=== PATIENT | male | born 1960 | race Caucasian/White ===

== ENCOUNTER 2016-10-21 18:06 | Inpatient (IN) | payer MEDICAID ==
[~2016-10-21] VITALS: Ht 185.4 cm; Wt 82.0 kg
[~2016-10-21 18:06] MED LIST: AMLO10TA2 PO; ASPI-621 PO; CALC500T PO; CEFD300C37 PO; CYCL-259 PO; DICL50TA2 PO; DICL50TA4 PO; GABA300C10 PO; HYDR-3307 PO; LEVO500T33 PO; METR500T PO; OMEP-110 PO; VALS1TAB19 PO; VALS1TAB30 PO
[2016-10-21] MEDS ORDERED: DICL50TA2 PO (18:30)
[2016-10-21] MEDS ORDERED: ALBUTEROL/IPRATROPIUM 2.5MG/0.5MG, 3 ML ONE (19:27)
[2016-10-21] MEDS ORDERED: methylPREDNISolone SOD SUCC 125 MG/2 ML IVP ONE (19:30)
[2016-10-21] MEDS ORDERED: methylPREDNISolone SOD SUCC 125 MG/2 ML ONE (19:30)
[2016-10-21] MEDS ORDERED: ALBUTEROL/IPRATROPIUM 2.5MG/0.5MG, 3 ML NPPB ONE (19:30)
[2016-10-21 19:37] LABS: BLOOD UREA NITROGEN 15 mg/dL (7-18)
[2016-10-21 19:41] LABS: IS PT STATUS REG ER OR PRE ER? YES
[2016-10-21] MEDS ORDERED: OXYcodone/APAP 10/325MG TABLET ONE (21:40)
[2016-10-21] MEDS ORDERED: OXYcodone/APAP 10/325MG TABLET PO ONE (22:00)
[2016-10-22] MEDS: CEFTRIAXONE 1,000 MG in SODIUM CHLORIDE 0.9% 50 ML IV SCH ×3 (00:26→23:09)
[2016-10-22] MEDS: GABAPENTIN 300 MG CAPSULE PO SCH ×4 (00:26→21:23)
[2016-10-22] MEDS: methylPREDNISolone SOD SUCC 125 MG/2 ML IVPush SCH ×2 (00:26→11:00)
[2016-10-22] MEDS: SODIUM CHLORIDE 0.9% 1,000 ML IV SCH ×3 (00:26→21:24)
[2016-10-22] MEDS: FAMOTIDINE 20 MG TABLET PO SCH ×3 (00:27→21:22)
[2016-10-22] MEDS: GUAIFENESIN 200 MG TABLET PO SCH ×5 (00:27→21:23)
[2016-10-22] MEDS: HYDROcodone/APAP 5/325 TABLET PO PRN ×2 (00:48→10:23)
[2016-10-22 00:49] VITALS: BP 161/92
[2016-10-22] MEDS: AZITHROMYCIN 500 MG in SODIUM CHLORIDE 0.9% 250 ML IV SCH (01:04)
[2016-10-22 02:29] VITALS: BP 127/86
[2016-10-22 05:31] LABS: BLOOD UREA NITROGEN 19 mg/dL (7-18)
[2016-10-22 07:01] VITALS: BP 143/87
[2016-10-22] MEDS: ONDANSETRON 2MG/ML, 2ML IVPush PRN ×3 (08:34→21:23)
[2016-10-22] MEDS: DICLOFENAC 50 MG TABLET.DR PO SCH ×2 (08:37→21:00)
[2016-10-22] MEDS: VALSARTAN 320 MG TABLET PO SCH (08:37)
[2016-10-22] MEDS: ENOXAPARIN 40 MG/0.4 ML SQ SCH (08:38)
[2016-10-22] MEDS: AMLODIPINE 5 MG TABLET PO SCH (08:38)
[2016-10-22] MEDS: HYDROCHLOROTHIAZIDE 25 MG TABLET PO SCH (08:38)
[2016-10-22] MEDS ORDERED: ACETAMINOPHEN 325 MG TABLET PO PRN (09:00)
[2016-10-22] MEDS: KETOROLAC 30 MG/1 ML IVPush SCH ×2 (12:31→18:59)
[2016-10-22 13:41] VITALS: BP 139/82
[2016-10-22 19:05] VITALS: BP 143/78
[2016-10-23] MEDS: KETOROLAC 30 MG/1 ML IVPush SCH ×3 (00:18→11:33)
[2016-10-23] MEDS: AZITHROMYCIN 500 MG in SODIUM CHLORIDE 0.9% 250 ML IV SCH (00:19)
[2016-10-23] MEDS ORDERED: ALBUTEROL/IPRATROPIUM 2.5MG/0.5MG, 3 ML NPPB PRN (03:30)
[2016-10-23 04:03] VITALS: BP 134/76
[2016-10-23 05:55] LABS: BLOOD UREA NITROGEN 15 mg/dL (7-18)
[2016-10-23] MEDS: GUAIFENESIN 200 MG TABLET PO SCH ×2 (06:00→08:40)
[2016-10-23 07:08] VITALS: BP 123/69
[2016-10-23] MEDS: VALSARTAN 320 MG TABLET PO SCH ×2 (07:27→08:42)
[2016-10-23] MEDS: DICLOFENAC 50 MG TABLET.DR PO SCH (07:29)
[2016-10-23] MEDS: FAMOTIDINE 20 MG TABLET PO SCH (08:40)
[2016-10-23] MEDS: GABAPENTIN 300 MG CAPSULE PO SCH (08:40)
[2016-10-23] MEDS: SODIUM CHLORIDE 0.9% 1,000 ML IV SCH (08:42)
[2016-10-23] MEDS: HYDROCHLOROTHIAZIDE 25 MG TABLET PO SCH (08:42)
[2016-10-23] MEDS: ENOXAPARIN 40 MG/0.4 ML SQ SCH (08:42)
[2016-10-23] MEDS: AMLODIPINE 5 MG TABLET PO SCH (08:42)
[2016-10-23] MEDS ORDERED: PRED20TA PO (11:00)
[2016-10-23] MEDS: CEFTRIAXONE 1,000 MG in SODIUM CHLORIDE 0.9% 50 ML IV SCH (11:00)
[2016-10-23] MEDS ORDERED: AZIT250T89 PO (11:00)
[2016-10-23] MEDS ORDERED: CEFD300C37 PO (11:00)
[2016-10-23 11:39] VITALS: BP 153/88
== END 2016-10-23 12:57 | disposition home or self-care (01) | DRG 189 ==
LOC: ED 19:05 → EDIP 21:40 → 4NOR 23:36 → DCLOUNGE 10-23 12:45
PROVIDERS: ADMIT Internal Medicine; ATTEND Internal Medicine
DX: J96.01 Acute respiratory failure with hypoxia (principal); J15.9 Unspecified bacterial pneumonia; E87.1 Hypo-osmolality and hyponatremia; J44.0 Chronic obstructive pulmonary disease with (acute) lower respiratory infection; J44.1 Chronic obstructive pulmonary disease with (acute) exacerbation; I10 Essential (primary) hypertension; G89.29 Other chronic pain; M54.9 Dorsalgia, unspecified; Z87.891 Personal history of nicotine dependence; Z82.49 Family history of ischemic heart disease and other diseases of the circulatory system; T38.0X5A Adverse effect of glucocorticoids and synthetic analogues, initial encounter
CPT/HCPCS: 36415; 71010; 71020; 80048; 82040; 84439; 84443; 84484; 85025; 87040; 87070; 87205; 93005; 94640; 96374; 96376; J0456; J0696; J1650; J1885; J2405; J7620; J2930; J7030; J7050; J7512

== ENCOUNTER → 2018-03-15 | Outpatient (CLI) | payer MEDICAID ==
[~2018-03-15] MED LIST changes: -AMLO10TA2 PO; +AMLO10TA6 PO; +AZIT250T89 PO; -LEVO500T33 PO; +LEVO500T47 PO; +PRED20TA PO
== END | disposition home or self-care (01) ==
LOC: CFH 07:58
PROVIDERS: ATTEND Nurse Practitioner Family
DX: M51.36 Other intervertebral disc degeneration, lumbar region (principal); M48.061 Spinal stenosis, lumbar region without neurogenic claudication; M41.86 Other forms of scoliosis, lumbar region; M54.16 Radiculopathy, lumbar region
CPT/HCPCS: 72100; 72148

== ENCOUNTER 2019-01-11 12:04 | Inpatient (IN) | payer MEDICAID ==
[~2019-01-11] VITALS: Ht 182.9 cm; Wt 56.4 kg
[2019-01-14 14:36] VITALS: BP 136/82
== END 2019-01-14 17:25 | disposition home or self-care (01) | DRG 75 ==
LOC: ED 17:01 → EDIP 17:22 → 3NE 17:23
PROVIDERS: ADMIT Internal Medicine; ATTEND Internal Medicine
PROC: 009U3ZX Drainage of Spinal Canal, Percutaneous Approach, Diagnostic (ICD-10-PCS; principal; 2019-01-11)
DX: A87.9 Viral meningitis, unspecified (principal); E87.1 Hypo-osmolality and hyponatremia; E86.0 Dehydration; G89.29 Other chronic pain; M54.9 Dorsalgia, unspecified; H70.91 Unspecified mastoiditis, right ear; I10 Essential (primary) hypertension; M41.9 Scoliosis, unspecified; Z80.42 Family history of malignant neoplasm of prostate; Z82.49 Family history of ischemic heart disease and other diseases of the circulatory system; Z87.01 Personal history of pneumonia (recurrent); Z87.891 Personal history of nicotine dependence; Z88.8 Allergy status to other drugs, medicaments and biological substances
CPT/HCPCS: 36415; 70450; 71045; 80048; 80053; 82945; 83605; 83735; 84100; 84145; 84157; 85025; 87040; 87070; 87205; 87252; 87529; 89051; 93005; 96374; 99291; G0378; J0133; J1885; J2405; J0295; J0360; J7030; J7050

== ENCOUNTER → 2020-01-15 | Outpatient (CLI) | payer MEDICAID ==
[~2020-01-15] MED LIST changes: +ACET325T26 PO; -AMLO10TA6 PO; +AMLO10TA8 PO; +AMOX1TAB64 PO; -ASPI-621 PO; +ASPI81TA45 PO; -CALC500T PO; +CALC500T29 PO; +HYDR-3246 PO; -HYDR-3307 PO; +LOSA1TAB12 PO
== END | disposition home or self-care (01) ==
LOC: RAD 10:12
DX: M50.31 Other cervical disc degeneration, high cervical region (principal); M41.83 Other forms of scoliosis, cervicothoracic region; M48.02 Spinal stenosis, cervical region; M25.78 Osteophyte, vertebrae
CPT/HCPCS: 72050

== ENCOUNTER 2020-08-05 08:58 | Emergency (ER) | payer MEDICAID ==
[~2020-08-05] VITALS: Ht 180.3 cm; Wt 85.2 kg
[~2020-08-05 08:58] MED LIST changes: +AMLO-211 PO; -AMLO10TA8 PO; -CYCL-259 PO; +CYCL10TA2 PO; -HYDR-3246 PO; +HYDR-3248 PO
[2020-08-05] MEDS ORDERED: DIPHENHYDRAMINE 50 MG/ML, 1ML ONE (09:24)
[2020-08-05] MEDS ORDERED: PROCHLORPERAZINE 5 MG/ML, 2ML ONE (09:24)
[2020-08-05] MEDS ORDERED: KETOROLAC 30 MG/1 ML ONE (09:25)
--- NOTE | 2020-08-05 09:29 | NUR ---
PT TO CT
[2020-08-05] MEDS ORDERED: KETOROLAC 30 MG/1 ML IVPush ONE (09:30)
[2020-08-05] MEDS ORDERED: DIPHENHYDRAMINE 50 MG/ML, 1ML IVPush ONE (09:30)
[2020-08-05] MEDS ORDERED: PROCHLORPERAZINE 5 MG/ML, 2ML IVPush ONE (09:30)
[2020-08-05] MEDS ORDERED: SODIUM CHLORIDE 0.9% 1,000ML IVBOLUS ONE (09:30)
[2020-08-05] MEDS ORDERED: SODIUM CHLORIDE FLUSH 10ML SYR IVF ONE (09:30)
[2020-08-05 09:44] LABS: ALANINE AMINOTRANSFERASE 30 U/L (12-78); ALBUMIN 4.8 g/dL (3.4-5.0); ANION GAP 5 mmol/L (5-15); CHLORIDE 101 mmol/L (98-107); CREATININE 1.15 mg/dL (0.7-1.3)
[2020-08-05 09:45] LABS: BASOPHILS % (AUTO) 0 % (0-1); EOSINOPHILS % (AUTO) 2 % (1-7); LYMPHOCYTES % (AUTO) 23 % (22-44); MEAN CORPUSCULAR HEMOGLOBIN 34.3 pg (27.5-34.5); MEAN CORPUSCULAR HGB CONC 35.1 g/dL (33.2-36.2); MEAN PLATELET VOLUME 8.3 fL (7.4-10.4); MONOCYTES % (AUTO) 9 % (2-9); NEUTROPHILS % (AUTO) 65 % (42-75); PLATELET COUNT 269 x10^3/uL (130-400); RED CELL DISTRIBUTION WIDTH 12.1 % (9.4-14.8)
--- NOTE | 2020-08-05 09:45 | NUR ---
pt back from ct
[2020-08-05 09:46] LABS: ALKALINE PHOSPHATASE 101 U/L (45-117); BILIRUBIN,TOTAL 0.6 mg/dL (0.2-1.0); MD NO; TOTAL PROTEIN 8.7 g/dL (6.4-8.2)
[2020-08-05 09:56] VITALS: BP 148/99
== END 2020-08-05 11:10 | disposition home or self-care (01) ==
LOC: ED 10:01
DX: J32.2 Chronic ethmoidal sinusitis (principal); J32.0 Chronic maxillary sinusitis; I10 Essential (primary) hypertension; Z90.89 Acquired absence of other organs; Z88.8 Allergy status to other drugs, medicaments and biological substances
CPT/HCPCS: 36415; 70450; 80053; 85025; 96361; 96374; 96375; 99284; J0780; J1200; J1885; J7030

== ENCOUNTER 2020-08-16 12:11 | Emergency (ER) | payer MEDICAID ==
[~2020-08-16] VITALS: Ht 182.9 cm; Wt 86.5 kg
[2020-08-16] MEDS ORDERED: HYDR25TA6 PO (12:43)
[2020-08-16] MEDS ORDERED: METH-639 PO (12:44)
[2020-08-16] MEDS ORDERED: BUPR150T73 PO (12:44)
[2020-08-16] MEDS ORDERED: TAMS-11 PO (12:45)
--- NOTE | 2020-08-16 12:45 | NUR ---
the patient is a 60m with complaints of headache that radiates to his teeth and jaw when he coughs. this has been going on a while and he was seen here recently for the same. he completed the course of antibiotics prescribed with no improvement. at this time he says he feels "impaired" and also has a constant ringing in his ears. He states he feels disoriented and not like himself. bp and sp02 monitors in place and call light within reach. lights dimmed for comfort.
[2020-08-16] MEDS ORDERED: KETOROLAC 30 MG/1 ML IVPush ONE (13:00)
[2020-08-16] MEDS ORDERED: METOCLOPRAMIDE 5 MG/ML, 2ML IVPush ONE (13:00)
[2020-08-16] MEDS ORDERED: SODIUM CHLORIDE FLUSH 10ML SYR IVF ONE (13:00)
[2020-08-16] MEDS ORDERED: DIPHENHYDRAMINE 50 MG/ML, 1ML IVPush ONE (13:00)
[2020-08-16] MEDS ORDERED: SODIUM CHLORIDE 0.9% 1,000ML IVBOLUS ONE (13:00)
[2020-08-16 13:20] LABS: BASOPHILS % (AUTO) 1 % (0-1); EOSINOPHILS % (AUTO) 2 % (1-7); LYMPHOCYTES % (AUTO) 25 % (22-44); MEAN CORPUSCULAR HEMOGLOBIN 34.2 pg (27.5-34.5); MEAN CORPUSCULAR HGB CONC 34.8 g/dL (33.2-36.2); MONOCYTES % (AUTO) 11 % (2-9); NEUTROPHILS % (AUTO) 61 % (42-75); PLATELET COUNT 252 x10^3/uL (130-400); RED BLOOD COUNT 4.71 x10^6/uL (4.38-5.82); RED CELL DISTRIBUTION WIDTH 12.3 % (9.4-14.8)
[2020-08-16 13:21] LABS: MD NO
[2020-08-16] MEDS ORDERED: METOCLOPRAMIDE 5 MG/ML, 2ML ONE (13:26)
[2020-08-16] MEDS ORDERED: DIPHENHYDRAMINE 50 MG/ML, 1ML ONE (13:26)
[2020-08-16] MEDS ORDERED: KETOROLAC 30 MG/1 ML ONE (13:26)
[2020-08-16 13:27] LABS: ALBUMIN 4.2 g/dL (3.4-5.0); ANION GAP 3 mmol/L (5-15); CALCIUM 9.2 mg/dL (8.5-10.1); CHLORIDE 104 mmol/L (98-107); CREATININE 1.13 mg/dL (0.7-1.3)
--- NOTE | 2020-08-16 13:54 | NUR ---
PT BACK FROM MRI, IV STARTED AND MEDICATED PER ORDER, LIGHTS OFF, CALL LIGHT IN PLACE, PT VERBALIZED NO OTHER NEEDS AT THIS TIME
--- NOTE | 2020-08-16 14:07 | NUR ---
PT PAIN LEVEL IS NOW 4/10.
--- NOTE | 2020-08-16 14:46 | NUR ---
pt is resting comfortably with the lights off. vitals updated, all monitors in place and call light within reach. Awaiting disposition
[2020-08-16 14:47] VITALS: BP 114/84
== END 2020-08-16 15:23 | disposition home or self-care (01) ==
LOC: ED 15:00
DX: G43.C0 Periodic headache syndromes in child or adult, not intractable (principal); J32.1 Chronic frontal sinusitis; J32.0 Chronic maxillary sinusitis; I10 Essential (primary) hypertension
CPT/HCPCS: 36415; 70551; 80048; 82040; 85025; 93005; 96361; 96374; 96375; 99285; J1200; J1885; J2765; J7030

== ENCOUNTER → 2020-11-26 | Outpatient (CLI) | payer MEDICAID, OTHER ==
[~2020-11-26] MED LIST changes: +BUPR150T73 PO; +HYDR25TA6 PO; +METH-639 PO; +TAMS-11 PO; -VALS1TAB19 PO; +VALS1TAB20 PO
== END | disposition home or self-care (01) ==
LOC: STAR 10:38
PROVIDERS: ATTEND Anesthesiology
DX: Z01.818 Encounter for other preprocedural examination (principal); Z01.812 Encounter for preprocedural laboratory examination; Z01.89 Encounter for other specified special examinations; R79.1 Abnormal coagulation profile
CPT/HCPCS: 93005